=== PATIENT | male | born 1965 | race Caucasian/White ===

== ENCOUNTER 2019-10-07 21:53 | Emergency (ER) | payer BC ==
--- OUTSIDE RECORDS SUMMARY | 2019-10-07 21:55 | XMS REPORT | Clinical Summary ---
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 Plantar fasciitis of MD TREASURE left foot (Prim cristian Dx) 01/12/2019 Office Visit Orthopedic Surgery Paul Choe. 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 knees ( Primary Dx) 11/13/2018 Office Visit Orthopedic Surgery Paul Choe Plantar fasciitis of left foot (Primary Dx); MD TREASURE Heel pain, moving worker emma, left 11/03/2018 Office Visit Orthopedic Surgery Adelso Morgan Osteoart hritis of patellofemoral joints of both knees (Primary Dx); MD Ramya Chronic pain of both knees after 10/06/2018 Family History Medical History Relation Name Comments No Known Problems Mother Relation Name Status Comments Mother Alive Social History Tobacco Use Types Packs/Day Years Used Date Never Smoker 0 0 Smokeless Tobacco: Never Used Alcohol Use Drinks/Week oz/Week Comments Not Currently 2 Cans of beer Sex Assigned at Date Recorded Not on file Job Start Date Occupation Industry Not on file Not on file Not on file Travel History Travel Start Travel End No recent travel history available. 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 NE INJECT TENDON Routine 01/12/2019 8:00 Plantar fasciitis of Results for this ORIGIN/INSERT AM CDT left foot procedure are in the results section. NE ARTHROCENTESIS Routine 11/21/2018 3:00 Primary Result s for this ASPIR&/INJ MAJOR PM CDT osteoarthritis of proced ure are in JT/BURSA W/O US both knees the results section. XR CALCANEUS 2+ VW Routine 11/13/2018 2:09 Heel pain, chronic , Results for this LEFT PM CDT left procedure are i n the results section. XR KNEE 3 VW BILATERAL Routine 11/03/2018 9:03 Chronic pain o f both Results for this AM CDT knees procedure are i n the results section. 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) Narrative Performed At Paul Choe II, MD 06/11/2019 5 :35 PM Injection tendon or ligament: foot, left Date/Time: 06/11/2019 4:08 PM Performed by: Paul Choe II, MD Authorized by: Paul Choe II, MD Consent: Consent obtained: Verbal Consent given by: Patient Risks discussed: Pain Alternatives discussed: Alternative treatment, no treatment and observation Pre-procedure details: Preparation: Patient was prepped and draped in usua l sterile fashion Procedure details: Type of injection: Tendon origin Location: Foot Laterality: Left Left side: Needle size: 22 G Left foot medications administered: 1 mL triamcinolone acetonide 40 mg/mL Post-procedure details: Patient tolerance of procedure: Kamari erated well, no immediate complications Injection tendon or ligament: foot, left (01/12/2019 8:00 AM CDT) Narrative Performed At Paul Choe II, MD 01/12/2019 11: 59 AM Injection tendon or ligament: foot, left Date/Time: 01/12/2019 8:28 AM Performed by: Paul Choe II, MD Authorized by: Paul Choe II, MD Consent: Consent obtained: Verbal Consent given by: Patient Risks discussed: Pain Alternatives discussed: Alternative treatment, no treatment and observation Pre-procedure details: Preparation: Patient was prepped and draped in usua l sterile fashion Procedure details: Type of injection: Tendon origin Location: Foot Laterality: Left Left side: Needle size: 22 G Left foot medications administered: 1 mL triamcinolone acetonide 40 mg/mL Post-procedure details: Patient tolerance of procedure: Kamari erated well, no immediate complications Large Joint Arthrocentesis: knee, Bilateral knee (11/21/2018 3:00 PM CDT) Narrative Performed At Lisa Gandhi NP 11/22/19 19 5:05 PM Large Joint Arthrocentesis: knee, Bilate ral knee Consent given by: patient Site marked: site marked Timeout: Immediately prior to procedure a time out was called to verify the correct patient, procedure, equipmen t, technical support 1 software engineer and site/side marked as required Supporting Documentation Indications: pain Procedure Details Ultrasound guided: no Platelet Rich Plasma Used: no PRP Used Location: ee - Bilateral knee Right side: Needle size (right): 18G. Approach: anterolateral Right knee medications administered: 4 mL hyaluronate sodium, stabilized 88 mg/4 mL Patient tolerance: patient tolerated the procedure wel l with no immediate complications Left side: Needle size (left): 18G. Approach: anterolateral Left knee medications administered: 4 mL hyaluronate s odium, stabilized 88 mg/4 mL Patient tolerance: patient tolerated the procedure wel l with no immediate complications XR Calcaneus 2+ Vw Left (11/13/2018 2:09 PM CDT) Specimen Narrative Performed At This result has an attachment that is no t available. 2 view images of the left heel reveals no evidence of acute fracture or HM RADIANT dislocation. Large plantar calcaneal enthesopathy is appreciated. Bones well mineralized. Performing Organization Address City/[place] [employer] Phone Number [facility] [address] [place] [address] XR Knee 3 Vw Bilateral (11/03/2018 9:03 AM CDT) Specimen Narrative Performed At This result has an attachment that is no t available. 3 views of bilateral knees reveal no acute fracture or dislocation. HM RADIANT Medial and lateral compartment joint space is fairly w ell-maintained. The AP view of the right knee shows a change in patellar h eight relative to his left knee. However on the lateral it appears sb y similar. Patellofemoral arthritic changes noted. 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
--- OUTSIDE RECORDS SUMMARY | 2019-10-07 21:55 | XMS REPORT ---
:1965 Author Organization [facility] t Address [address] [place] [address] Care Team Providers Name Role Phone Tunde PORTER Primary Care Physician Chanelle EDWARDS, G Attending Clinician Unavailable Black Choe MD Attending Clinician Jesse WORTHY Attending Clinician Doctor Unassigned, Name Attending Clinician Unavailable Murray Gandhi NP Attending Clinician Ramya Morgan MD Attending Clinician Payers Payer Name Policy Type Policy Number Effective Date Expiration Date Stevie sandoval BCBSBCBS xxxxxxxxxxxx 2016 [place] CHOICE 00:00:00 Spiritism PPO/FEDERAL EMPL PPOxxxxxxxxxxx 2016-Pres entPPO Problems This patient has no known problems. Allergies, Adverse Reactions, Alerts This patient has no known allergies or adverse reactions. Family History Family Member Diagnosis Comments Start Date Stop Date Source Natural mother No Known Problems Grey Terry Social History Social Habit Start Date Stop Date Quantity Comments Source Sex Assigned At [place] M ethodist Alcohol intake 2019-06-11 2019-06-11 Ex-drinker [facility] thodist 00:00:00 00:00:00 (finding) Smoking Status Start Date Stop Date Source Never smoker [place] Methodis t Medications Ordered Filled Start Stop Current Ordering Indication Dosage Frequency Signature Comments Components Source Medication Medication Date Date Medication? Clinician (SIG) Name Name meloxicam 2018- No Osteoarthri 15mg QD Take 1 [place] (MOBIC) 15 11-03 08-20 tis of tablet (15 [facility] mg tablet 00:00: 23:59 patellofemo mg total) st 00 :00 ral joints by mouth of both daily for knees 60 days. rosuvastati 2018- Yes Tu guzman (CRESTOR) 5-07 [facility] 10 MG 00:00: st tablet 00 Vital Signs Vital Name Observation Time Observation Value Comments Source Body height 2019-06-11 15:58:00 165.1 cm Lucio Terry Body weight 2019-06-11 15:58:00 81.647 kg Lucio Terry BMI 2019-06-11 15:58:00 29.95 kg/m2 Lucio Terry Procedures Procedure Date / Time Performing Clinician Source Performed HI INJECT TENDON 2019-06-11 15:50:00 Paul Choe Met [facility]odist ORIGIN/INSERT HI INJECT TENDON 2019-01-12 08:00:00 Paul Choe [facility] ORIGIN/INSERT HI ARTHROCENTESIS 2018-11-21 15:00:00 Lisa Gandhi M ethodist ASPIR&/INJ MAJOR JT/BURSA Gao W/O US XR CALCANEUS 2+ VW LEFT 2018-11-13 14:09:20 Paul Choe XR KNEE 3 VW BILATERAL 2018-11-03 09:03:21 Adelso Morgan Plan of Care Planned Activity Planned Date Details Comments Source Future Scheduled 2019-12-15 INFLUENZA VACCINE Tu guzman Spiritism Test 00:00:00 [code = INFLUENZA VACCINE] Future Scheduled 2017-08-24 COLONOSCOPY SCREENING rika Terry Test 00:00:00 [code = COLONOSCOPY SCREENING] Future Scheduled 2017-08-24 SHINGLES VACCINES Tu guzman Spirit[facility] Test 00:00:00 (#1) [code = SHINGLES VACCINES (#1)] Encounters Start End Encounter Admission Attending Care Care Encounter Source Date/Time Date/Time Type Type Clinicians Facility Department ID 2019-10-07 2019-10-07 Nurse Gabriela EAST [id number] 00:00:00 00:00:00 Angelica Jack [id number] [facility] [id number] 2019-01-27 2019-01-27 Urgent Jesse PAKEE [id number] 18:29:42 18:44:42 Care [facility] [id number] Surgical [id number] Specialti [id number] es [address] 2019-01-27 2019-01-27 Orders Doctor CRUZITO [id number] 00:00:00 00:00:00 Only Unassigned, SUSIE [id number] [facility] [id number] 2019-01-27 2019-01-27 Telephone Jesse PAKEE [id number] 00:00[facility]00 [facility] [id number] [facility] [id number] Specialti [id number] es 370 Point Results Test Description Test Time Test Comments Results Result [facility] e Comments Injection tendon 2019-05-17 Paul Choe II, MD [place] or ligament: 7 06/11/2019 5:35 Metho dist foot, left 15:50:00 PMInjection tendon or ligament: foot, leftDate/Time: 06/11/2019 4:08 PMPerformed by: Paul Choe II, MDAuthorized by: Paul Choe II, MD Consent: Consent obtained: Verbal Consent given by: Patient Risks discussed: Pain Alternatives discussed: Alternative treatment, no treatment and observationPre-procedu re details: Preparation: Patient was prepped and draped in usual sterile fashion Procedure details: Type of injection: Tendon origin Location: Foot Laterality: LeftLeft side:Needle size: 22 GLeft foot medications administered: 1 mL triamcinolone acetonide 40 mg/mL Post-procedure details: Patient tolerance of procedure: Tolerated well, no immediate complications Injection tendon 2018-12-16 Paul Choe II, MD [place] or ligament: 0 01/12/2019 11:59 Metho dist foot, left 08:00:00 AMInjection tendon or ligament: foot, leftDate/Time: 01/12/2019 8:28 AMPerformed by: Paul Choe II, MDAuthorized by: Paul Choe II, MD Consent: Consent obtained: Verbal Consent given by: Patient Risks discussed: Pain Alternatives discussed: Alternative treatment, no treatment and observationPre-procedu re details: Preparation: Patient was prepped and draped in usual sterile fashion Procedure details: Type of injection: Tendon origin Location: Foot Laterality: LeftLeft side:Needle size: 22 GLeft foot medications administered: 1 mL triamcinolone acetonide 40 mg/mL Post-procedure details: Patient tolerance of procedure: Tolerated well, no immediate complications Large Joint Lisa Gandhi Arthrocentesis: 9 Murray, ELSA Spiritism knee, Bilateral 15:00:00 11/21/2018 5:05 PMLarge knee Joint Arthrocentesis: knee, Bilateral kneeConsent given by: patientSite marked: site markedTimeout: Immediately prior to procedure a time out was called to verify the correct patient, procedure, equipment, lab support tech and site/side marked as required Supporting DocumentationIndicatio ns: pain Procedure DetailsUltrasound guided: no Platelet Rich Plasma Used: no PRP Used Location: knee - Bilateral knee Right side:Needle size (right): 18G.Approach: anterolateralRight knee medications administered: 4 mL hyaluronate sodium, stabilized 88 mg/4 mLPatient tolerance: patient tolerated the procedure well with no immediate complications Left side:Needle size (left): 18G.Approach: anterolateralLeft knee medications administered: 4 mL hyaluronate sodium, stabilized 88 mg/4 mLPatient tolerance: patient tolerated the procedure well with no immediate complications
--- OUTSIDE RECORDS SUMMARY | 2019-10-07 21:55 | XMS REPORT | Summary of Care ---
:1965 Author Organization [facility] Address [address] [place] [address] Care Team Providers Name Role Phone Tunde Dena Primary Care Provider Reason for Visit Reason Comments BITE Encounter Details Date Type Department Care Team Description 10/07/2019 Nurse Triage [facility] Angelica Roca, BITE [address] [facility] [place] [address] [address] [facility] [phone] [place] [address] Allergies No Known Allergiesdocumented as of this encounter (statuses as of 10/07/2019) Medications Medication Sig Dispensed Refills Start Date End Date Status rosuvastatin calcium Take by mouth. 0 Active (CRESTOR ORAL) brompheniramine-pseudoe Take 5 mL by 175 mL 0 05/31/2018 Active phedrine-DM (BROMFED mouth 4 (four) DM) 2-30-10 mg/5 mL times daily as syrupIndications: Viral needed for upper respiratory tract Congestion/Allerg infection with cough ies or Cough. promethazine-dextrometh Take 5 mL by 210 mL 0 01/27/2019 Active orphan 6.25-15 mg/5 mL mouth 4 (four) syrupIndications: Viral times daily as illness needed for Cough or Cold symptoms. documented as of this encounter (statuses as of 10/07/2019) Active Problems No known active problemsdocumented as of this encounter (statuses as of 10/07/2019) Social History Tobacco Use Types Packs/Day Years Used Date Never Smoker Smokeless Tobacco: Never Used Alcohol Use Drinks/Week oz/Week Comments Yes socially Sex Assigned at Date Recorded Not on file Job Start Date Occupation Industry Not on file Not on file Not on file Travel History Travel Start Travel End No recent travel history available. documented as of this encounter Last Filed Vital Signs Not on filedocumented in this encounter Plan of Treatment Health Maintenance Due Date Last Done Comments DTaP,Tdap,and Td Vaccines (1 - 08/24/1978 Tdap) COLONOSCOPY 08/24/2017 Zoster Recombinant Vaccine 08/24/2017 (SHINGRIX) (1 of 2) INFLUENZA VACCINE (Season Ended) 2020 PNEUMOCOCCAL 0-64 YEARS COMBINED Aged Out No longer eligible based on SERIES patient's age to complete this topic documented as of this encounter Results Not on filedocumented in this encounter Insurance Payer Benefit Plan Subscriber ID Effective Dates Phone Address Type / Group BCBS OF [employer] [place] [id number] 2016-[place] [phone] [address] [place] PPO/[place] [id number] [place] [address] documented as of this encounter
--- NOTE | 2019-10-07 23:09 | ER ---
Nurse's Notes [facility] Name: Angelo Medeiros Age: 54 yrs Sex: Male : 1965 Arrival Date: 10/07/2019 Time: 21:56 Bed 17 Private MD: Diagnosis: Bitten by nonvenomous snake Presentation: 10/06 22:04 Chief complaint: Patient states: Unknown if bitten by snake; States feeling something lp1 on left foot when walking on driveway; Denies any pain to left foot, no swelling. Coronavirus screen: Proceed with normal triage. Ebola Screen: No symptoms or risks identified at this time. Initial Sepsis Screen: Does the patient meet any 2 criteria? No. Patient's initial sepsis screen is negative. Does the patient have a suspected source of infection? No. Patient's initial sepsis screen is negative. Risk Assessment: Do you want to hurt yourself or someone else? Patient reports no desire to harm self or others. Onset of symptoms was October 07, 2019 at 21:30. 22:04 Method Of Arrival: Ambulatory lp1 22:04 Acuity: VIC 4 lp1 Historical: - Allergies: 22:08 No Known Allergies; lp1 - Home Meds: 22:08 atorvastatin oral oral [Active]; lp1 - PMHx: 22:08 Hyperlipidemia; lp1 - PSHx: 22:08 None; lp1 - Immunization history:: Adult Immunizations up to date. - Social history:: Smoking status: Patient denies any tobacco usage or history of. - Family history:: not pertinent. Screenin:09 Abuse screen: Denies threats or abuse. Denies injuries from another. Nutritional lp1 screening: No deficits noted. Tuberculosis screening: No symptoms or risk factors identified. Fall Risk None identified. Vital Signs: 22:04 BP 153 / 103; Pulse 95; Resp 18; Temp 98.6(TE); Pulse Ox 96% on R/A; Weight 90.72 kg lp1 (R); Height 5 ft. 6 in. (167.64 cm); Pain 0/10; 22:04 Body Mass Index 32.28 (90.72 kg, 167.64 cm) lp1 ED Course: 21:56 Patient arrived in ED. cf2 22:06 Romario Curiel PA is PHCP. [facility] 22:07 Bobby Cedillo DO is Attending Physician. [facility] 22:07 Triage completed. lp1 22:07 Arm band placed on. lp1 22:28 Eliza Novoa, RN is Primary Nurse. ll1 Administered Medications: 23:08 Drug: ADAcel 0.5 ml {Photo Mask Inspector: [employer]. Exp: 06/29/2021. Lot #: [id number]. } ll1 Route: IM; Site: left deltoid; Outcome: 23:08 Discharge ordered by MD. ms3 23:12 Patient left the ED. 1 Signatures: Romario Curiel PA PA jmm Pena, Laura, RN RN lp1 Whit Cutler 2 Eliza Novoa, RN RN [facility] Bobby Cedillo DO DO ms3
--- NOTE | 2019-10-07 23:09 | EDPHYS ---
Physician Documentation [facility] Name: Angelo Medeiros Age: 54 yrs Sex: Male : 1965 Arrival Date: 10/07/2019 Time: 21:56 Bed 17 Private MD: ED Physician Bobby Cedillo HPI: 10/06 23:01 This 54 yrs old Male presents to ER via Ambulatory with complaints of Snake ms3 bite. 23:01 The patient was bitten on the left foot. Onset: The symptoms/episode began/occurred ms3 acutely, 2 hour(s) ago. Animal information: Milk snake. Secondary to the bite the patient reports an abrasion. Associated signs and symptoms: The patient has no apparent associated signs or symptoms. Severity of symptoms: in the emergency department the symptoms a " 0" out of "10". The patient has not experienced similar symptoms in the past. Historical: - Allergies: 22:08 No Known Allergies; lp1 - Home Meds: 22:08 atorvastatin oral oral [Active]; lp1 - PMHx: 22:08 Hyperlipidemia; lp1 - PSHx: 22:08 None; lp1 - Immunization history:: Adult Immunizations up to date. - Social history:: Smoking status: Patient denies any tobacco usage or history of. - Family history:: not pertinent. ROS: 23:01 Constitutional: Negative for fever, and chills. Eyes: Negative for injury, pain, ms3 redness, and discharge, ENT: Negative for injury, pain, and discharge, Neck: Negative for injury, pain, and swelling, Cardiovascular: Negative for chest pain, and palpitations. Respiratory: Negative for shortness of breath, cough, wheezing, and pleuritic chest pain, Abdomen/GI: Negative for abdominal pain, nausea, vomiting, diarrhea, and constipation, Back: Negative for injury and pain, MS/Extremity: Negative for injury and deformity. 23:01 Neuro: Negative for headache, weakness, numbness, tingling. Psych: Negative for depression, anxiety, suicide ideation, homicidal ideation, and hallucinations. 23:01 Skin: Positive for abrasion(s). Exam: 23:01 Constitutional: This is a well developed, well nourished patient who is awake, alert, ms3 and in no acute distress. Head/Face: Normocephalic, atraumatic. Chest/axilla: Normal chest wall appearance and motion. Nontender with no deformity. Cardiovascular: Regular rate and rhythm with a normal S1 and S2. No gallops, murmurs, or rubs. Normal PMI, no JVD. No pulse deficits. Respiratory: Lungs have equal breath sounds bilaterally, clear to auscultation and percussion. No rales, rhonchi or wheezes noted. No increased work of breathing, no retractions or nasal flaring. Abdomen/GI: Soft, non-tender, with normal bowel sounds. No distension or tympany. No guarding or rebound. No evidence of tenderness throughout. Back: No spinal tenderness. No costovertebral tenderness. Full range of motion. MS/ Extremity: Pulses equal, no cyanosis. Neurovascular intact. Full, normal range of motion. Neuro: Awake and alert, GCS 15, oriented to person, place, time, and situation. Cranial nerves II-XII grossly intact. Motor strength 5/5 in all extremities. Sensory grossly intact. Cerebellar exam normal. Normal gait. Psych: Awake, alert, with orientation to person, place and time. Behavior, mood, and affect are within normal limits. 23:01 Skin: Appearance: Abrasion top of left foot. Vital Signs: 22:04 BP 153 / 103; Pulse 95; Resp 18; Temp 98.6(TE); Pulse Ox 96% on R/A; Weight 90.72 kg lp1 (R); Height 5 ft. 6 in. (167.64 cm); Pain 0/10; 22:04 Body Mass Index 32.28 (90.72 kg, 167.64 cm) lp1 MDM: 22:59 Patient medically screened. ms3 23:01 Differential diagnosis: superficial laceration, abrsaion, snake bite. Data reviewed: ms3 vital signs, nurses notes. ED course: Discussed physical exam with pt. Pt to follow up with his PMD within 2 days. All questions answered. Return precautions discussed to include chest pain, lightheadedness, or any other concerns. Pt understands/ agrees with plan. Pt alert/ oriented, nad, non-toxic, ambulatory in ED.. Administered Medications: 23:08 Drug: ADAcel 0.5 ml {Tig Welder: [employer]. Exp: 06/29/2021. Lot #: [id number]. } ll1 Route: IM; Site: left deltoid; Disposition: 23:01 Co-signature as Attending Physician, Bobby Cedillo DO. ms3 Disposition: 10/07/19 23:08 Discharged to Home. Impression: Bitten by nonvenomous snake. - Condition is Stable. - Discharge Instructions: Snake Bite. - Medication Reconciliation Form, Thank You Letter, Antibiotic Education, Prescription Opioid Use form. - Follow up: Private Physician; When: 2 - 3 days; Reason: Re-evaluation by your physician. Signatures: Ashlee Ocampo RN RN lp1 Eliza Novoa RN RN ll1 Bobby Cedillo DO DO ms3 Corrections: (The following items were deleted from the chart) 23:12 23:08 10/07/2019 23:08 Discharged to Home. Impression: Bitten by nonvenomous snake. ll1 Condition is Stable. Forms are Medication Reconciliation Form, Thank You Letter, Antibiotic Education, Prescription Opioid Use. Follow up: Private Physician; When: 2 - 3 days; Reason: Re-evaluation by your physician. ms3
[2019-10-07] MEDS ORDERED: TETANUS & DIPHTHERIA TOX,ADULT 0.5 ML VIAL ONE (23:11)
[2019-10-07 23:17] VITALS: BP 153/103; TEMP 98.6; O2SAT 96
== END 2019-10-07 23:12 | disposition home or self-care (01) ==
LOC: ER 21:53
DX: S91.352A Open bite, left foot, initial encounter (principal); E78.5 Hyperlipidemia, unspecified; W59.11XA Bitten by nonvenomous snake, initial encounter; Y93.9 Activity, unspecified; Y92.9 Unspecified place or not applicable
CPT/HCPCS: 90471; 90714; 99282